=== PATIENT | female | born 1960 | race Caucasian/White ===

== ENCOUNTER → 2021-04-25 | Outpatient (CLI) | payer OTHER ==
[~2021-04-25] MED LIST: BUTALB-ACETAMI1 EACH PO; LEVAQUIN750 MG PO
== END ==
LOC: KOH-I 10:58
DX: Q61.2 Polycystic kidney, adult type (principal)
CPT/HCPCS: 76775

== ENCOUNTER → 2022-05-02 | Outpatient (CLI) | payer OTHER | LOC: KOH-I 13:00 | DX: Q61.2 Polycystic kidney, adult type (principal); Q61.02 Congenital multiple renal cysts | CPT/HCPCS: 76775 ==